=== PATIENT | male | born 1960 | race Caucasian/White ===

== ENCOUNTER 2017-05-15 07:49 | Emergency (ER) | payer BC ==
[~2017-05-15] VITALS: Ht 193 cm; Wt 136.0 kg
[~2017-05-15 07:49] MED LIST: CARV6.252 PO; LISI-363 PO; PROM6.257 PO
[2017-05-15 07:50] VITALS: BP 168/122; PULSE 113; RESP 20; TEMP 97.6; O2SAT 99
--- NOTE | 2017-05-15 08:13 | PD ---
HPI Chief Complaint: Back/ Neck Pain or Injury Time Seen by Provider: 07:59 Travel History International Travel<30 days: No Contact w/Intl Traveler<30days: No Traveled to known affect area: No History of Present Illness HPI 56-year-old male with history of low back pain presents to emergency department with recent increased left sided low back pain with radiation into the left leg to the thigh. Patient states he's had this recurrently for some time but recently it has been worse in the last week. Patient states no specific injury, but the pain is progressively worsened in the last week. Patient is able to ambulate with difficulty, but denies specific weakness other than from pain. No numbness or tingling. Denies bowel or bladder trouble. Pain is described as sharp and burning and worse with certain movements. He states is similar to previous episodes. Pain is now 9 out of 10. He has no known drug allergies. PFSH Past Medical History Anxiety: Yes (R/T UNEMPLOYMENT ) Depression: Yes (R/T BEING ON UNEMPLOYMENT.) Cardiovascular Problems: Yes Diabetes: No Diminished Hearing: Yes ([facility] LEFT EAR) Hypertension: Yes Musculoskeletal: No Neurologic: No Psychiatric: Yes Respiratory: No Past Surgical History Other Surgery: No Social History Alcohol Use: No Tobacco Use: No Substance Use: Yes (MARIJUANA ONCE OR TWICE A YEAR) Allergies-Medications (Allergen,Severity, Reaction): Coded Allergies: No Known Allergies (Verified Adverse Reaction, Unknown, 05/15/17) Reported Meds & Prescriptions Reported Meds & Active Scripts Active Phenergan W/Codeine (Promethazine W/Codeine) 6.25-10 mg/5 ml Ml 10 Ml PO Q6H PRN Carvedilol 6.25 mg (Carvedilol) 6.25 Mg Tab 1 Tab PO BID Lisinopril 20 mg (Lisinopril) 20 Mg Tab 1 Tab PO DAILY Review of Systems Except as stated in HPI: all other systems reviewed are Neg General / Constitutional: No: Fever Eyes: No: Visual changes HENT: No: Headaches Cardiovascular: No: Chest Pain or Discomfort Respiratory: No: Shortness of Breath Gastrointestinal: No: Abdominal Pain Genitourinary: No: Dysuria Musculoskeletal: Positive: Arthralgias, Limited ROM, Pain Skin: No Rash Neurologic: No: Weakness Psychiatric: No: Depression Endocrine: No: Polydipsia Hematologic/Lymphatic: No: Easy Bruising Physical Exam Narrative GENERAL: Patient appears in moderate distress. SKIN: Warm and dry. Normal color. Normal turgor. No rash. HEAD: Atraumatic. Normocephalic. EYES: Pupils equal and round. No scleral icterus. No injection or drainage. ENT: No nasal bleeding or discharge. Mucous membranes pink and moist. Pharynx is clear. Airway is patent. NECK: Trachea midline. Supple nontender. CARDIOVASCULAR: Regular rate and rhythm. RESPIRATORY: No accessory muscle use. Clear to auscultation. Breath sounds equal bilaterally. GASTROINTESTINAL: Abdomen soft, non-tender, nondistended. Hepatic and splenic margins not palpable. MUSCULOSKELETAL: Extremities without clubbing, cyanosis, or edema. No obvious deformities. Patient has increased tenderness with palpation along the left lumbar spine radiating into the left sciatic notch. Positive straight leg raise pain at 30 on the left. Deep tendon reflexes are 2+ bilaterally in both patellar and Achilles tendons. NEUROLOGICAL: Awake and alert. No obvious cranial nerve deficits. Motor grossly within normal limits. Five out of 5 muscle strength in the arms and legs. Normal speech. PSYCHIATRIC: Appropriate mood and affect; insight and judgment normal. Data Data Last Documented VS Vital Signs Date Time Temp Pulse Resp B/P (MAP) Pulse Ox O2 Delivery O2 Flow Rate FiO2 05/15/17 07:50 97.6 113 20 168/122 (137) 99 Room Air Orders Orders Ketorolac Inj (Toradol Inj) (05/15/17 08:15) Dexamethasone Inj (Decadron Inj) (05/15/17 08:15) Acetamin-Hydrocod 325-5 Mg (Grady 5-325 (05/15/17 08:15) [facility] Medical Decision Making Medical Screen Exam Complete: Yes Emergency Medical Condition: Yes Medical Record Reviewed: Yes Differential Diagnosis Left lumbar back pain. Sciatica. Muscle spasm. Radiculopathy. Narrative Course Patient is given Toradol 60 mg IM as well as 10 mg Decadron IM. Patient is given Lortab 5/325 by mouth now. Patient will be continued on prednisone 20 mg twice a day 7 days. Patient is given Flexeril 10 mg up to 3 times a day when necessary #30. Patient is given tramadol 50 mg one every 6 hours when necessary pain #20. Patient is given a work note for the next 2 days. Patient is to follow with local primary care physician or return to emergency department if symptoms are not improving or worsening as needed. Diagnosis Primary Impression: Left-sided low back pain with sciatica Qualified Codes: M54.42 - Lumbago with sciatica, left side Additional Instructions: Patient is given Toradol 60 mg IM as well as 10 mg Decadron IM. Patient is given Lortab 5/325 by mouth now. Patient will be continued on prednisone 20 mg twice a day 7 days. Patient is given Flexeril 10 mg up to 3 times a day when necessary #30. Patient is given tramadol 50 mg one every 6 hours when necessary pain #20. Patient is given a work note for the next 2 days. Patient is to follow with local primary care physician or return to emergency department if symptoms are not improving or worsening as needed. Med/Other Pt SpecificInfo: Prescription(s) given Disposition: 01 DISCHARGE HOME Condition: Stable Nathan Panda May 15, 2017 08:13
[2017-05-15] MEDS ORDERED: DEXAMETHASONE SOD PHOS 20 MG/5 ML VIAL IM ONE (08:15)
[2017-05-15] MEDS ORDERED: TRAM50TA PO (08:15)
[2017-05-15] MEDS ORDERED: KETOROLAC TROMETHAMINE 60 MG/2 ML (IM) VIAL IM ONE (08:15)
[2017-05-15] MEDS ORDERED: ACETAMINOPHEN/HYDROcodone 325 MG/5 MG TAB PO ONE (08:15)
[2017-05-15] MEDS ORDERED: PRED20 PO (08:15)
[2017-05-15] MEDS ORDERED: CYCL10TA PO (08:15)
== END 2017-05-15 08:36 | disposition home or self-care (01) ==
LOC: NEPD 07:49
DX: M54.42 Lumbago with sciatica, left side (principal); F41.9 Anxiety disorder, unspecified; F32.9 Major depressive disorder, single episode, unspecified; I10 Essential (primary) hypertension; Z79.899 Other long term (current) drug therapy
CPT/HCPCS: 96372; 99284; J1100; J1885

== ENCOUNTER 2017-08-09 09:11 | Emergency (ER) | payer OTHER, BC ==
[~2017-08-09] VITALS: Ht 193 cm; Wt 136.4 kg
[~2017-08-09 09:11] MED LIST changes: +CYCL10TA PO; +PRED20 PO; +TRAM50TA PO
[2017-08-09 09:14] VITALS: BP 204/129; PULSE 117; RESP 22; TEMP 97.7; O2SAT 99
[2017-08-09] MEDS ORDERED: SODIUM CHLOR 0.9% 1000 ML INJ 1,000 ML IV SCH (10:01)
[2017-08-09] MEDS ORDERED: KETOROLAC TROMETHAMINE 30 MG/ML (IVP) VIAL IVP ONE (10:15)
[2017-08-09] MEDS ORDERED: ORPHENADRINE INJ 60 MG/2 ML AMP IM ONE (10:15)
[2017-08-09] MEDS ORDERED: SODIUM CHLORIDE 0.9% FLUSH 10 ML FLUSH IV FLUSH PRN (10:15)
--- NOTE | 2017-08-09 10:16 | PD ---
HPI Chief Complaint: Back/ Neck Pain or Injury Time Seen by Provider: 09:43 Travel History International Travel<30 days: No Contact w/Intl Traveler<30days: No Traveled to known affect area: No History of Present Illness HPI 57-year-old male presents to the emergency department with multiple complaints. He presents complaining of left lower back pain that radiates to his groin, left testicle pain and left flank pain since Sunday. He associates his left lower back pain with injury after pushing something heavy. He has history of chronic back pain. Denies IV drug use or cancer. Denies fever, vomiting, encopresis, incontinence, saddle anesthesias. Denies chest pain, shortness of breath. Denies paresthesias, loss of sensation, decreased range of motion, decreased strength to bilateral lower extremities. Denies dysuria, hematuria, but states he feels like he has to strain to urinate. Testicular pain is worse after urinating. Denies change in stool. Reports limp to the left lower extremity with gait, secondary to low back pain. Denies testicular swelling, penile discharge or drainage. Rates pain 9/10. Low back pain is better when he lays on his stomach. Worse with walking, movement. Has taken ibuprofen and other [id number] pain medications; has tried heating pad, TENS unit for symptom management. Primary care providers in [place]. No known allergies. History of hypertension and does not take medications as a dull make him feel good; says he was diagnosed with high blood pressure 25 years ago. Blood pressure is elevated in the ER and patient is asymptomatic. PFSH Past Medical History Anxiety: Yes (R/T UNEMPLOYMENT ) Depression: Yes (R/T BEING ON UNEMPLOYMENT.) Cardiovascular Problems: Yes (HTN) Diabetes: No Diminished Hearing: Yes ([facility] LEFT EAR) Hypertension: Yes Musculoskeletal: No Neurologic: No Psychiatric: Yes Respiratory: No Past Surgical History Other Surgery: No Social History Alcohol Use: No Tobacco Use: No Substance Use: Yes (MARIJUANA ONCE OR TWICE A YEAR) Allergies-Medications (Allergen,Severity, Reaction): Coded Allergies: No Known Allergies (Verified Adverse Reaction, Unknown, 08/09/17) Reported Meds & Prescriptions Reported Meds & Active Scripts Active Ibuprofen 800 Mg Tab 800 Mg PO Q6HR PRN Robaxin (Methocarbamol) 500 Mg Tab 500 Mg PO QID PRN Tramadol (Tramadol HCl) 50 Mg Tab 50 Mg PO Q4H PRN Review of Systems Except as stated in HPI: all other systems reviewed are Neg Physical Exam Narrative GENERAL: Well-nourished, well-developed male patient, in no acute distress; afebrile, nontoxic-appearing SKIN: Warm and dry. HEAD: Atraumatic. Normocephalic. EYES: Pupils equal and round. No scleral icterus. No injection or drainage. ENT: Mucosa pink and moist. Airway patent. NECK: Trachea midline. CARDIOVASCULAR: Regular rate and rhythm. No murmur appreciated. RESPIRATORY: No accessory muscle use. Breath sounds clear and equal bilaterally. GASTROINTESTINAL: Abdomen soft, tender to left flank/left lower quadrant, nondistended. Positive bowel sounds. No hepato-splenomegaly, or palpable masses. No guarding. GENITOURINARY: Exam done in the presence of a nurse. Testes descended bilaterally; left testicle with pain illicited on palpation; without edema. No lesions or erythema. MUSCULOSKELETAL: Bilateral lower extremities supple and non-tense with 2+ pedal pulses and sensory intact; with full range of motion and 5/5 strength. 2 + DTRs bilaterally. Active dorsiflexion and extension of bilateral feet. Left straight leg raise is positive for low back pain. Ambulatory in room with a limp to left lower extremity. Sitting up in bed at 90. No obvious deformities. No clubbing. No cyanosis. No edema. BACK: Left CVA tenderness. Midline point tenderness on palpation of the lumbar spine. Tenderness on palpation of left lumbar iliosacral area. No obvious deformities. NEUROLOGICAL: Awake and alert. Oriented 3. No obvious cranial nerve deficits. Motor grossly within normal limits. Normal speech. Moves all extremities. 5/5 strength to all extremities. Sensory intact. PSYCHIATRIC: Appropriate mood and affect; insight and judgment normal. Data Data Last Documented VS Vital Signs Date Time Temp Pulse Resp B/P (MAP) Pulse Ox O2 Delivery O2 Flow Rate FiO2 08/09/17 13:46 08/09/17 12:56 87 19 97 Room Air 08/09/17 09:14 97.7 Orders Orders Complete Blood Count With Diff (08/09/17 10:01) Comprehensive Metabolic Panel (08/09/17 10:01) Lipase (08/09/17 10:01) Ct Abd/Pel W/O Iv Contrast (08/09/17 10:01) Iv Access Insert/Monitor (08/09/17 10:01) Sodium Chlor 0.9% 1000 Ml Inj (Ns 1000 M (08/09/17 10:01) Sodium Chloride 0.9% Flush (Ns Flush) (08/09/17 10:15) Ketorolac Inj (Toradol Inj) (08/09/17 10:15) Ct Lumb Spine W/O Contrast (08/09/17 ) Us Testicles W Doppler (08/09/17 ) Orphenadrine Inj (Norflex Inj) (08/09/17 10:15) Urinalysis - C+S If Indicated (08/09/17 10:06) Labs Laboratory Tests Test 08/09/17 10:27 08/09/17 12:50 White Blood Count 7.3 TH/MM3 Red Blood Count 5.69 MIL/MM3 Hemoglobin 16.7 GM/DL Hematocrit 49.0 % Mean Corpuscular Volume 86.2 FL Mean Corpuscular Hemoglobin 29.3 PG Mean Corpuscular Hemoglobin Concent 34.0 % Red Cell Distribution Width 13.1 % Platelet Count 222 TH/MM3 Mean Platelet Volume 8.3 FL Neutrophils (%) (Auto) 68.6 % Lymphocytes (%) (Auto) 20.0 % Monocytes (%) (Auto) 9.9 % Eosinophils (%) (Auto) 1.0 % Basophils (%) (Auto) 0.5 % Neutrophils # (Auto) 5.0 TH/MM3 Lymphocytes # (Auto) 1.5 TH/MM3 Monocytes # (Auto) 0.7 TH/MM3 Eosinophils # (Auto) 0.1 TH/MM3 Basophils # (Auto) 0.0 TH/MM3 CBC Comment DIFF FINAL Differential Comment Blood Urea Nitrogen 15 MG/DL Creatinine 1.00 MG/DL Random Glucose 235 MG/DL Total Protein 7.5 GM/DL Albumin 3.9 GM/DL Calcium Level 9.1 MG/DL Alkaline Phosphatase 110 U/L Aspartate Amino Transf (AST/SGOT) 33 U/L Alanine Aminotransferase (ALT/SGPT) 39 U/L Total Bilirubin 0.5 MG/DL Sodium Level 135 MEQ/L Potassium Level 4.5 MEQ/L Chloride Level 103 MEQ/L Carbon Dioxide Level 26.3 MEQ/L Anion Gap 6 MEQ/L Estimat Glomerular Filtration Rate 77 ML/MIN Lipase 77 U/L Urine Color YELLOW Urine Turbidity CLEAR Urine pH 6.0 Urine Specific [place] 1.021 Urine Protein TRACE mg/dL Urine Glucose (UA) 300 mg/dL Urine Ketones TRACE mg/dL Urine Occult Blood NEG Urine Nitrite NEG Urine Bilirubin NEG Urine Urobilinogen LESS THAN 2.0 MG/DL Urine Leukocyte Esterase NEG Urine RBC LESS THAN 1 /hpf Urine WBC LESS THAN 1 /hpf Urine Bacteria RARE /hpf Urine Hyaline Casts 6 /lpf Urine Mucus FEW /lpf Microscopic Urinalysis Comment CULT NOT INDICATED MDM Medical Decision Making Medical Screen Exam Complete: Yes Emergency Medical Condition: Yes Medical Record Reviewed: Yes Differential Diagnosis Acute exacerbation of chronic low back pain, low back strain, muscle spasm, sciatica, nephrolithiasis, diverticulitis, testicular torsion Narrative Course 57-year-old male with multiple complaints. Patient has left flank pain, left testicular pain, left lower back pain. Patient has reproducible pain to all of these areas. He is afebrile and nontoxic appearing. Denies fever, vomiting. Denies focal prescribed incontinence, saddle anesthesias. Denies IV drug use or cancer. Neuro exam is unremarkable. Patient is ambulatory in the room with guarded gait. He has no point tenderness on compression of the lumbar spine. CT lumbar spine, CT abdomen, testicular ultrasound, CBC, CMP, lipase, urinalysis , IV, Toradol, Norflex ordered. 1247: CT abdomen and CT lumbar spine concludes: Abdomen/Pelvis CT 08/09/17 1001 Signed Impressions: Service Date/Time: July 11:16 - CONCLUSION: 1. 1.5 cm hypodense lesion within the mid right kidney which is poorly characterized. Non-emergent evaluation with contrast-enhanced CT or MRI should be considered. 2. No evidence of nephrolithiasis or obstructive uropathy. 3. No acute process. Lalit Mcclure MD Lumbar Spine CT 08/09/17 0000 Signed Impressions: Service Date/Time: July 11:16 - CONCLUSION: 1. Mild degenerative disc disease and facet arthropathy. 2. Mild central spinal stenosis. 3. No acute bony abnormality or disc herniation. Lalit Mcclure MD Testicular ultrasound normal. Patient provided a copy of CT reports. Instructed patient to follow up outpatient for nonemergent evaluation with contrast-enhanced CT or MRI of his abdomen/pelvis. Tramadol and Robaxin prescribed for home. 1308: Patient's blood pressure continues to be elevated. I discussed medication treatment and the patient declines. With patient's blood pressure being so elevated, I do not feel comfortable discharging the patient without treatment. I discussed this with Dr. Colbert and he agrees the patient BP needs to be treated or sign out AMA. I discussed AMA and the patient will sign out AMA. Patient was given his prescriptions and copies of the CT reports prior to leaving. AMA: The risks of leaving against medical advice without further evaluation treatment were discussed with the patient. These risks include cardiac dysfunction, cardiac dysrhythmia, possible heart attack, possible stroke or . The patient indicated understanding of these risks and appeared to have the capacity to make this decision. Diagnosis Primary Impression: Left against medical advice Referrals: [facility] Primary Care Physician Med/Other Pt SpecificInfo: Prescription(s) given Scripts Ibuprofen (Ibuprofen) 800 Mg Tab 800 MG PO Q6HR Y for PAIN, #30 TAB 0 Refills Prov: Elissa Steinberg 08/09/17 Methocarbamol (Robaxin) 500 Mg Tab 500 MG PO QID Y for MUSCLE SPASM, #30 TAB 0 Refills Prov: Elissa Steinberg 08/09/17 Tramadol (Tramadol) 50 Mg Tab 50 MG PO Q4H Y for PAIN, #12 TAB 0 Refills Prov: Elissa Steinberg 08/09/17 Disposition: 07 AGAINST MEDICAL ADVICE Elissa Steinberg Aug 09, 2017 10:16
[2017-08-09 10:53] LABS: BASOPHIL % 0.5 % (0.0-2.0); EOSINOPHIL # 0.1 TH/MM3 (0-0.4); HEMOGLOBIN 16.7 GM/DL (13.0-17.0); LYMPHOCYTE # 1.5 TH/MM3 (1.0-4.8); MEAN CELL VOLUME 86.2 FL (80.0-100.0); MEAN CORPUSCULAR HEMOGLOBIN 29.3 PG (27.0-34.0); MEAN PLATELET VOLUME 8.3 FL (7.0-11.0); MONO % 9.9 % (0.0-8.0); MONOCYTE # 0.7 TH/MM3 (0-0.9); NEUT % 68.6 % (16.0-70.0); PLATELET COUNT 222 TH/MM3 (150-450); RED BLOOD COUNT 5.69 MIL/MM3 (4.50-5.90); RED CELL DISTRIBUTION WIDTH 13.1 % (11.6-17.2); WHITE BLOOD COUNT 7.3 TH/MM3 (4.0-11.0)
[2017-08-09 11:12] LABS: ALKALINE PHOSPHATASE 110 U/L (45-117); TOTAL BILIRUBIN ADULT 0.5 MG/DL (0.2-1.0); TOTAL PROTEIN 7.5 GM/DL (6.4-8.2)
[2017-08-09 11:14] LABS: ALBUMIN 3.9 GM/DL (3.4-5.0); ALT (GPT) 39 U/L (12-78); AST (GOT) 33 U/L (15-37); BICARBONATE 26.3 MEQ/L (21.0-32.0); BLOOD UREA NITROGEN 15 MG/DL (7-18); CALCIUM 9.1 MG/DL (8.5-10.1); CHLORIDE 103 MEQ/L (98-107); GLOMERULAR FILTRATION RATE 77 ML/MIN (>89); GLUCOSE,RANDOM 235 MG/DL (74-106); SODIUM (NA) 135 MEQ/L (136-145)
--- NOTE | 2017-08-09 11:36 | RADRPT ---
EXAM DATE/TIME: 08/09/2017 11:16 [facility] COMPARISON: No previous studies available for comparison. INDICATIONS : Lower back pain ORAL CONTRAST: No oral contrast ingested. RADIATION DOSE: 21.56 CTDIvol (mGy) MEDICAL HISTORY : Hypertension. SURGICAL HISTORY : None. ENCOUNTER: Initial ACUITY: 4 - 6 days PAIN SCALE: 10/10 LOCATION: Left lower quadrant TECHNIQUE: Volumetric scanning of the abdomen and pelvis was performed. Using automated exposure control and ad justment of the mA and/or kV according to patient size, radiation dose was kept as low as reasonably achievable to obtain optimal diagnostic quality images. DICOM format image data is available electro nically for review and comparison. FINDINGS: LOWER LUNGS: The visualized lower lungs are clear. LIVER: Homogeneous density without lesion. There is no dilation of the biliary tree. No calcified gallston es. SPLEEN: Normal size without lesion. PANCREAS: Within normal limits. KIDNEYS: A 1.5 cm hypodense lesion is identified posteriorly in the midpole the right kidney. There is no evid ence of nephrolithiasis or hydronephrosis. There is no evidence of ureteral distention, ureteral ston e or urinary bladder abnormality. ADRENAL GLANDS: Within normal limits. VASCULAR: There is no aortic aneurysm. BOWEL/MESENTERY: The stomach, small bowel, and colon demonstrate no acute abnormality. There is no free intraperitone al air or fluid. ABDOMINAL WALL: Within normal limits. RETROPERITONEUM: There is no lymphadenopathy. BLADDER: No wall thickening or mass. No evidence of stones. REPRODUCTIVE: Within normal limits. INGUINAL: There is no lymphadenopathy or hernia. MUSCULOSKELETAL: Within normal limits for patient age. CONCLUSION: 1. 1.5 cm hypodense lesion within the mid right kidney which is poorly characterized. Non-emergent ev aluation with contrast-enhanced CT or MRI should be considered. 2. No evidence of nephrolithiasis or obstructive uropathy. 3. No acute process. Lalit Mcclure MD on August 09, 2017 at 11:30 Board Certified Radiologist. This report was verified electronically.
--- NOTE | 2017-08-09 11:43 | RADRPT ---
EXAM DATE/TIME: 08/09/2017 11:16 [facility] COMPARISON: No previous studies available for comparison. INDICATIONS : Lower back pain RADIATION DOSE: ; Reconstructed from previous dataset, no dose MEDICAL HISTORY : Hypertension. SURGICAL HISTORY : None. ENCOUNTER: Initial ACUITY: 4 - 6 days PAIN SCALE: 10/10 LOCATION: Left lower quadrant TECHNIQUE: Volumetric scanning of the lumbar spine was performed. Multiplanar reconstructions in the sagittal, coronal and oblique axial planes were performed. Using automated exposure control and adjustment of the mA and/or kV according to patient size, radiation dose was kept as low as reasonab ly achievable to obtain optimal diagnostic quality images. DICOM format image data is available juan ctronically for review and comparison. FINDINGS: Alignment: Straightening of normal lordosis is noted. There is no significant listhesis. Osseous structures and facet joints: Vertebral bodies are intact without evidence of compression deformity. Mild facet arthropathy is iden tified bilaterally. There are no destructive lesions. Intervertebral disc spaces: Mild degenerative disc disease with disc space narrowing and marginal spondylosis is noted. There is no evidence of epidural disc herniation. Neurologic structures: Mild central spinal canal narrowing is identified at the L2-3, L3-4 and L4-5 levels. CONCLUSION: 1. Mild degenerative disc disease and facet arthropathy. 2. Mild central spinal stenosis. 3. No acute bony abnormality or disc herniation. Lalit Mcclure MD on August 09, 2017 at 11:37 Board Certified Radiologist. This report was verified electronically.
--- NOTE | 2017-08-09 12:29 | RADRPT ---
EXAM DATE/TIME: 08/09/2017 10:29 [facility] COMPARISON: No previous studies available for comparison. INDICATIONS : Testicle pain. MEDICAL HISTORY : Hypertension. Depression. SURGICAL HISTORY : Right wrist surgery. ENCOUNTER: Initial ACUITY: 1 day PAIN SCORE: 9/10 LOCATION: Bilateral testicles MEASUREMENTS: RIGHT TESTICLE: 4.6 x 2.3 x 2.4cm LEFT TESTICLE: 4.2 x 3.6 x 2.4cm FINDINGS: RIGHT TESTICLE: Testicle is intact. No evidence of mass. Color flow is normal. Small epididymal cysts. Minimal hydroc juan. LEFT TESTICLE: Testicle is intact. No evidence of mass. Color flow is normal. Small epididymal cyst. Small hydrocele . Mild varicocele. SCROTUM: Within normal limits. CONCLUSION: Testicles are normal Yonatan Guerra MD on August 09, 2017 at 12:13 Board Certified Radiologist. This report was verified electronically.
[2017-08-09] MEDS ORDERED: ROBA500T PO (12:51)
[2017-08-09] MEDS ORDERED: IBUP1TAB7 PO (12:51)
[2017-08-09] MEDS ORDERED: TRAM50TA PO (12:51)
[2017-08-09 12:56] VITALS: BP 203/132; PULSE 87; RESP 19; O2SAT 97
[2017-08-09 13:18] LABS: BACTERIA, URINE RARE /hpf; BILIRUBIN, URINE NEG (NEG); BLOOD, URINE NEG (NEG); GLUCOSE,URINE 300 mg/dL (NEG); HYALINE CAST, URINE 6 /lpf (RARE); KETONE, URINE TRACE mg/dL (NEG); MUCUS URINE FEW /lpf (OCC); NITRITE,URINE NEG (NEG); URINE COLOR YELLOW (YELLW/STRAW); URINE LEUKOCYTE ESTERASE NEG (NEG)
== END 2017-08-09 14:15 | disposition left against medical advice (07) ==
LOC: NEPD 09:11
DX: N50.812 Left testicular pain (principal); I10 Essential (primary) hypertension; Z53.21 Procedure and treatment not carried out due to patient leaving prior to being seen by health care provider
CPT/HCPCS: 72131; 74176; 76870; 80053; 81001; 83690; 85025; 93975; 96361; 96372; 96374; 99285; J1885; J2360; J7030